=== PATIENT | male | born 1970 | race Two or more races ===

== ENCOUNTER 2018-12-11 07:30 | Inpatient (IN) | payer OTHER ==
[~2018-12-11] VITALS: Ht 172.7 cm; Wt 88.5 kg
[2018-12-23] VITALS (13 sets, daily range): BP systolic 121–148; BP diastolic 68–96
[2018-12-23] MEDS ORDERED: Pantoprazole Inj IVP ONE (06:00)
[2018-12-23] MEDS ORDERED: Vancomycin 1gm/D5W 275ml IVPB ONE ×2 (06:00)
--- NOTE | 2018-12-23 07:51 | Pre-Procedure Note/Attestation ---
Pre-Procedure Note/Attestation Complete Prior to Procedure Planned Procedure: bilateral Procedure Narrative: Redo posterior lumbar decompressive surgery at L4-5 and L5-S1 levels with interbody fixation at the L5-S1 level, pedicle screw fixation at L4-S1, posterolateral arthrodesis, with use of allograft, autograft and iliac crest bone aspirate Attestation I attest that I discussed the nature of the procedure; its benefits; risks and complications; and alternatives (and the risks and benefits of such alternatives ), prior to the procedure, with the patient (or the patient's legal bilingual inside sales representative). I attest that, if there was a reasonable possibility of needing a blood transfusion, the patient (or the patient's legal bilingual inside sales representative) was given the [place] Department of Health Services standardized written summary, pursuant to the Raimundo Kvng Blood Safety Act ([place] Health and Safety Code # 1645, as amended). I attest that I re-evaluated the patient just prior to the surgery and that there has been no change in the patient's H&P, except as documented below: Bryce Pitts MD Dec 23, 2018 07:51
[2018-12-23] MEDS ORDERED: NORMODYNE100 MG ORAL (10:34)
[2018-12-23] MEDS ORDERED: TYLENOL325 M1 PO (10:34)
[2018-12-23] MEDS ORDERED: PERCOCET 10-321 EACH ORAL (10:35)
[2018-12-23] MEDS ORDERED: LR 1000ml 1,000 ML IVLG SCH (11:26)
[2018-12-23] MEDS ORDERED: Hydromorphone 0.5mg/0.5ml inj IVP PRN (11:30)
[2018-12-23] MEDS ORDERED: Acetaminophen (Non formulary) 100 ML IV ONE (11:30)
[2018-12-23] MEDS ORDERED: oxyCODONE HCL/Acetaminophen 5/325mg ORAL PRN (11:30)
[2018-12-23] MEDS ORDERED: Midazolam 2mg/2ml Inj IVP PRN (11:30)
[2018-12-23] MEDS ORDERED: Atropine Sulfate 0.4mg/ml inj IVP PRN (11:30)
[2018-12-23] MEDS ORDERED: fentaNYL 100 mcg/2 mL IV PRN (11:30)
[2018-12-23] MEDS ORDERED: HYDROcodone/Acetamin 5/325 tab ORAL PRN (11:30)
[2018-12-23] MEDS ORDERED: Labetalol 5mg/ml 20ml vial IV PRN (11:30)
[2018-12-23] MEDS ORDERED: Ketorolac 30mg Inj IV PRN ×2 (11:30)
[2018-12-23] MEDS ORDERED: HYDROcodone/Acetamin 7.5/325 tab ORAL PRN (11:30)
[2018-12-23] MEDS ORDERED: Metoclopramide 10mg/2ml Inj IVP PRN (11:30)
[2018-12-23] MEDS ORDERED: LORazepam Inj 2mg/ml 1ml IV PRN (11:30)
[2018-12-23] MEDS ORDERED: Meperidine 50mg/ml Inj(FOR RIGORS ONLY) IVP PRN (11:30)
[2018-12-23] MEDS ORDERED: DiphenhydrAMINE 50mg/ml Inj IVP PRN (11:30)
--- NOTE | 2018-12-23 11:43 | Anethesia Preoperative Eval ---
Anesthesia Pre-op PMH/ROS General Date of Evaluation: Dec 23, 2018 Time of Evaluation: 13:13 Anesthesiologist: Osito ASA Score: ASA 3 Mallampati Score Class I : Soft palate, uvula, fauces, pillars visible Class II: Soft palate, uvula, fauces visible Class III: Soft palate, base of uvula visible Class IV: Only hard plate visible Mallampati Classification: Class II Surgeon: Hong Diagnosis: Neck Pain Surgical Procedure: TLIF L4-5, L5-S1 Social History: current smoker, alcohol use, drug use - Crystal Meth, Marijuana Family History: no anesthesia problems Allergies: Coded Allergies: No Known Allergies (Unverified , 12/23/18) Medications: see eMAR Patient NPO?: Yes NPO Date: Dec 22, 2018 NPO Time: 2199 Past Medical History Cardiovascular: Reports: HTN Musculoskeletal/Integumentary: Reports: other - Scabies PSxH Narrative: Lumbar Fusion Anesthesia Pre-op Phys. Exam Physician Exam Last Vital Signs Date Time Temp Pulse Resp B/P (MAP) Pulse Ox O2 Delivery O2 Flow Rate FiO2 12/23/18 10:31 Room Air 12/23/18 10:15 97.8 78 18 147/96 (113) 100 Constitutional: NAD Neurologic: CN 2-12 intact Cardiovascular: RRR Respiratory: CTA Gastrointestinal: S/NT/ND Airway Exam Mallampati Score: Class II MO: full ROM: limited Teeth: missing, intact Anesthesia Pre-op A/P Risk Assessment & Plan Assessment: ASA 3 Plan: GA. SED, GlideScope Go Status Change Before Surgery: No Pre-Antibiotics Dru Gram Vancomycin IV Given Within 1 Hr of Incision: Yes Time Given: 13:46 Ab Nye MD Dec 23, 2018 11:43
[2018-12-23] MEDS ORDERED: Bupivacaine w/Epi 0.5% 30ml Vial INJ ONE (12:14)
[2018-12-23] MEDS ORDERED: Bacitracin Oint 15gm Tube TOPIC ONE (12:14)
[2018-12-23] MEDS ORDERED: Heparin 1000 units/ml 1ml Vial ONE (12:14)
[2018-12-23] MEDS ORDERED: Thrombin 5000 units TOPIC ONE (12:14)
[2018-12-23] MEDS ORDERED: Bacitracin 50000 Units Vial ONE (12:15)
[2018-12-23] MEDS ORDERED: Gelfoam Size TOPIC ONE (12:15)
[2018-12-23] MEDS ORDERED: Lidocaine 1% Plain 30 ml INJ ONE ×3 (12:36→16:45)
[2018-12-23] MEDS ORDERED: Lidocaine 1% MPF 10mg/ml 5ml ONE (12:38)
[2018-12-23] MEDS ORDERED: Dexamethasone 4mg/ml vial ONE (12:38)
[2018-12-23] MEDS ORDERED: Sodium Chloride 10ml vial INJ ONE (12:38)
[2018-12-23] MEDS ORDERED: fentaNYL 100 mcg/2 mL IV ONE ×3 (12:39→17:57)
[2018-12-23] MEDS ORDERED: Rocuronium Bromide 50mg/5ml Inj IV ONE (12:58)
[2018-12-23] MEDS ORDERED: Pantoprazole Inj ONE (12:58)
[2018-12-23] MEDS ORDERED: Vancomycin 1gm vial IVPB ONE ×2 (12:59→17:37)
[2018-12-23] MEDS ORDERED: Sterile Water Irrig 1000ml IRRIG ONE (13:00)
[2018-12-23] MEDS ORDERED: Propofol 1,000mg/ 100ml btl IV ONE (13:00)
[2018-12-23] MEDS ORDERED: LR 1000ml ONE (13:00)
[2018-12-23] MEDS ORDERED: NS Irrig 1000ml ONE (13:00)
[2018-12-23] MEDS ORDERED: NS Irrig 1000ml IRRIG ONE ×2 (13:34→14:20)
--- NOTE | 2018-12-23 14:22 | Immediate Post-Op Evaluation ---
Immediate Post-Op Evalulation Immediate Post-Op Evalulation Procedure: TLIF L4-5, L5-S1 Date of Evaluation: Dec 23, 2018 Time of Evaluation: 18:48 IV Fluids: 1000 LR Blood Products: 0 Estimated Blood Loss: 100 Urinary Output: 150 Blood Pressure Systolic: 121 Blood Pressure Diastolic: 74 Pulse Rate: 82 Respiratory Rate: 16 O2 Sat by Pulse Oximetry: 100 Temperature (Fahrenheit): 97.6 Pain Score (1-10): 3 Nausea: No Vomiting: No Complications 0 Patient Status: awake, reacts, patent, extubated, none Hydration Status: adequate Dru Gram Vancomycin IV Given Within 1 Hr of Incision: Yes Time Given: 13:46 Ab Nye MD Dec 23, 2018 14:22
[2018-12-23] MEDS ORDERED: Rate Change PCA 1 Each MISC PRN (18:45)
[2018-12-23] MEDS ORDERED: PCA Education Pamphlet MISC ONE (18:45)
[2018-12-23] MEDS ORDERED: Naloxone 0.4mg/ml Inj IVP PRN (18:45)
[2018-12-23] MEDS ORDERED: LORazepam 1mg tab ORAL PRN (18:45)
[2018-12-23] MEDS ORDERED: Milk of Magnesia 30ml Ud ORAL PRN (18:45)
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
--- NOTE | 2018-12-23 19:33 | General Progress Note ---
Progress Note Progress Note Neurosurgery Post-op check S/ Comfortable, No leg pain O/ Last 24 Hour Vital Signs Date Time Temp Pulse Resp B/P (MAP) Pulse Ox O2 Delivery O2 Flow Rate FiO2 12/23/18 19:20 76 13 121/77 100 Nasal Cannula 3 12/23/18 19:06 77 19 134/78 100 Nasal Cannula 3 12/23/18 18:56 76 16 131/79 100 Nasal Cannula 3 12/23/18 18:47 77 11 141/89 100 Simple Mask 6 12/23/18 18:42 77 22 141/74 100 Simple Mask 6 12/23/18 18:37 97.9 83 16 121/74 100 Simple Mask 6 12/23/18 18:34 82 16 100 12/23/18 10:31 Room Air 12/23/18 10:15 97.8 78 18 147/96 (113) 100 Alert and oriented x 4 Moves all extremities to command Normal sensation dressing dry HV minimal output doing well post-op pain management on Dilaudid TUBING TESTER Lumbar brace PT in am Family updated Bryce Pitts MD Dec 23, 2018 19:33
[2018-12-23] MEDS: PCA HYDROmorphone 1mg/ml 30 ML IV PRN (19:37)
--- NOTE | 2018-12-23 20:15 | NUR ---
NURSE NOTES: Received report from Gina from PACU. Patient arrived on the unit at 2009. Patient is awake and alert x4. On Nasal cannula 3L with no c/o SOB. Went over belongings with patient and KNOCK OUT HAND. Surgical site on lower back with hemovac in place. Patient has an IV on the L hand 18g running fluids. TELECOMMUNICATIONS TECHNICIAN checked and verified. Colindres catheter in place and draining yellow urine. Patient's home meds noted in patient bag and sent to pharmacy. Bed locked and in lowest position. Call light in reach. Will monitor closely. VS - BP:132/87 HR:76 O2:97% T:98.1 RR:26 Pain:10/10
[2018-12-23] MEDS: PCA shift volume MISC SCH (20:45)
--- NOTE | 2018-12-23 20:58 | General Progress Note ---
Assessment/Plan Assessment/Plan: s/p complex lumbar spine surgery has a rash negative for MRSA preop Subjective Date patient seen: Dec 23, 2018 Time patient seen: 20:55 Allergies: Coded Allergies: No Known Allergies (Unverified , 12/23/18) Subjective he is hungry he has pain no fever Objective Last 24 Hour Vital Signs Date Time Temp Pulse Resp B/P (MAP) Pulse Ox O2 Delivery O2 Flow Rate FiO2 12/23/18 20:22 15 12/23/18 20:07 13 12/23/18 19:52 15 12/23/18 19:50 98.0 75 19 126/83 100 Nasal Cannula 3 12/23/18 19:37 11 12/23/18 19:35 74 16 136/68 100 Nasal Cannula 3 12/23/18 19:26 97.9 12/23/18 19:20 76 13 121/77 100 Nasal Cannula 3 12/23/18 19:06 77 19 134/78 100 Nasal Cannula 3 12/23/18 18:56 76 16 131/79 100 Nasal Cannula 3 12/23/18 18:47 77 11 141/89 100 Simple Mask 6 12/23/18 18:42 77 22 141/74 100 Simple Mask 6 12/23/18 18:37 97.9 83 16 121/74 100 Simple Mask 6 12/23/18 18:34 82 16 100 12/23/18 10:31 Room Air 12/23/18 10:15 97.8 78 18 147/96 (113) 100 Height (Feet): 5 Height (Inches): 8.00 Weight (Pounds): 195 Neck: other - no jvd Cardiovascular: normal rate, regular rhythm Respiratory/Chest: lungs clear Abdomen: soft Extremities: other - mild edema Neurologic: alert, oriented x 3 MIPS Medication Reconciliation 130 Medication Reconciliation pain control antibiotic prophyalxis PT OT dvt prophyalxis mionnitor Irvin Chiu MD Dec 23, 2018 20:58
[2018-12-23] MEDS: NS w/KCl 20mEq 1000ml 1,000 ML IV SCH (21:53)
--- NOTE | 2018-12-23 22:00 | NUR ---
NURSE NOTES: Instructed patient to use the incentive spirometer 10 times every hour while awake. Patient able to demonstrate technique.
[2018-12-23] MEDS: HYDROmorphone 1mg/ml Carpuject IVP PRN (22:27)
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
[2018-12-24] VITALS (7 sets, daily range): BP systolic 106–149; BP diastolic 62–96
[2018-12-24] MEDS: Vancomycin 1 GM in D5W 275 ML IVPB SCH ×2 (02:14→14:24)
[2018-12-24] MEDS: HYDROmorphone 1mg/ml Carpuject IVP PRN ×4 (06:12→21:02)
[2018-12-24 06:38] LABS: BASOPHILS % (AUTO) 0.2 % (0.0-2.0); HEMOGLOBIN 11.5 G/DL (14.2-18.0); LYMPHOCYTES % (AUTO) 11.7 % (20.0-45.0); MEAN CORPUSCULAR VOLUME 92 FL (80-99); PLATELET COUNT 326 K/UL (150-450); RED BLOOD COUNT 3.72 M/UL (4.70-6.10); RED CELL DISTRIBUTION WIDTH 12.6 % (11.6-14.8); WHITE BLOOD COUNT 13.6 K/UL (4.8-10.8)
[2018-12-24] MEDS: PCA shift volume MISC SCH ×2 (07:00→19:00)
[2018-12-24] MEDS: NS w/KCl 20mEq 1000ml 1,000 ML IV SCH (07:00)
[2018-12-24 07:01] LABS: ANION GAP 6 mmol/L (5-15); BLOOD UREA NITROGEN 9 mg/dL (7-18); CALCIUM 7.5 MG/DL (8.5-10.1); CARBON DIOXIDE 26 MMOL/L (21-32); CHLORIDE 106 MMOL/L (98-107); CREATININE 0.7 MG/DL (0.55-1.30); POTASSIUM 4.2 MMOL/L (3.5-5.1); SODIUM 138 MMOL/L (136-145)
--- NOTE | 2018-12-24 07:38 | NUR ---
HAND-OFF: Report given to NELSON Maynard.
--- NOTE | 2018-12-24 08:00 | NUR ---
NURSE NOTES: Received report from Ana M DAMON. Patient is awake and oriented, no acute distress noted, on NC, etCO2 monitoring in place. FURNACE CONVERTER settings checked and verified against order. SCD's in place. Hemovac compressed, posterior surgical dressing with small stain noted. Patient having breakfast and tolerating well. Updated on plan of care for the day. Side rails upx2, bed low and locked, call light in reach. Will continue to monitor.
--- NOTE | 2018-12-24 08:31 | 48 Hour Post Anesthesia Eval ---
Post Anesthesia Evaluation Procedure: TLIF L4-5, L5-S1 Date of Evaluation: Dec 24, 2018 Time of Evaluation: 08:30 Blood Pressure Systolic: 127 0: 68 Pulse Rate: 68 Respiratory Rate: 20 Temperature (Fahrenheit): 97.6 O2 Sat by Pulse Oximetry: 98 Airway: patent Nausea: No Vomiting: No Pain Intensity: 3 Hydration Status: adequate Cardiopulmonary Status: stable Mental Status/LOC: patient returned to baseline Follow-up Care/Observations: n/a Post-Anesthesia Complications: none Follow-up care needed: N/A Joshua Laird MD Dec 24, 2018 08:31
[2018-12-24] MEDS: Docusate Sod/Senna tab ORAL SCH ×2 (09:06→18:01)
[2018-12-24] MEDS: Docusate 100mg cap ORAL SCH ×2 (09:07→18:01)
--- NOTE | 2018-12-24 10:38 | Diagnostic Imaging Report ---
INDICATION: Pain, intraoperative TECHNIQUE: Intraoperative imaging Fluoroscopy time: 41.4 seconds Total dose: 0.06102 mGym2 Total number of images: 6 COMPARISON: None FINDINGS: 6 intraoperative images demonstrate markers projected posteriorly to what is presumably the L4-5 disc and proximal sacrum. Subsequent images document placement of posterior fusion hardware bridging L4, L5, and S1, as well as placement of a disc spacer at L5-S1 IMPRESSION: Intraoperative imaging, as described
--- NOTE | 2018-12-24 11:25 | NUR ---
PT NOTE Received MD order for PT evaluation. Patient also has order for lumbar brace, brace not available yet. Left message for Dr. Pitts to clarify if patient can be OOB without brace, waiting for return call. Aleyda DAMON aware, will follow.
--- NOTE | 2018-12-24 13:35 | NUR ---
PT EVALUATION NOTE Patient seen for initial evaluation, see complete evaluation for details. Patient lives in a second floor apartment without elevator access. Patient presents with impaired functional mobility s/p lumbar surgery. Patient requires min assist to complete bed mobility tasks and CGA for transfers with FWW. Patient able to ambulate 30 ft with CGA and FWW. Patient will benefit from skilled inpatient PT intervention to address strength, balance and safety including stair training to increase independence with functional mobility. Recommend discharge to ARU/SNF for further rehab once medically cleared by MD. Recommend FWW and elevated toilet seat for home. Addendum: 12/24/18 at 1449 by LISA NIETO PT Amended: Links added.
--- NOTE | 2018-12-24 15:26 | NUR ---
NURSE NOTES: Colindres catheter removed per MD order. Patient tolerated well. Patient provided with urinal and educated to inform RN when he voids. Will continue to monitor.
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
--- NOTE | 2018-12-24 17:42 | NUR ---
NURSE NOTES: Patient voided 275mL of clear, yellow urine without difficulty.
[2018-12-24] MEDS: PCA HYDROmorphone 1mg/ml 30 ML IV PRN (18:04)
[2018-12-24] MEDS ORDERED: PCA HYDROmorphone 1mg/ml 30 ML IV PRN (18:45)
--- NOTE | 2018-12-24 18:45 | NUR ---
NURSE NOTES: Received call from Dr. Pitts. MD gave orders to change WOOD REPATCHER bolus interval to 10min and d/c WOOD REPATCHER tomorrow at 1000 and start patient on PO Dilaudid. also gave orders for CT lumbar spine w/o contrast. Orders read back and entered. Changed WOOD REPATCHER settings to 0.2mg/10min lockout/6mg per 4hr max with second nurse witness Anita DAMON.
--- NOTE | 2018-12-24 19:45 | NUR ---
HAND-OFF: Report given to Odalis DAMON.
[2018-12-25] VITALS (8 sets, daily range): BP systolic 131–171; BP diastolic 83–111
--- NOTE | 2018-12-25 00:05 | NUR ---
NURSES NOTE: Met patient in bed, lying supine, A/O X4, very talkative and able to communicate needs. Patient shows no outward s/s of distress, breathing is unlabored and even, 2000 VS taken and low grade fever detected- 100.6. Tylenol 650 mg given. Temp decreased to 99.7. RETORT OPERATOR pump in use by patient. Patient aware of RETORT OPERATOR usage and delivers self doses accordingly. Dilaudid 1mg given at 2100 and 0300 for break through pain. RR normal. Surgical site, clean and intact. Hemovac draining appropriately. Patient will continue to be monitored.
[2018-12-25] MEDS: HYDROmorphone 1mg/ml Carpuject IVP PRN ×3 (02:44→12:45)
--- NOTE | 2018-12-25 05:40 | NUR ---
NURSES NOTE At 0423 SHOEMAKER APPRENTICE pump increased from 0.20 to 0.30, according to titration parameters. Patient reporting improved pain scale numbers- increase effective. Before increase implemented, pharmacy called and spoke to Griselda (pharmacist). Griselda stated no need to change order if increase stays within specified numbers of existing order. Charge nurseRay aware and implemented change with RN.
[2018-12-25] MEDS: PCA shift volume MISC SCH (07:00)
--- NOTE | 2018-12-25 07:58 | NUR ---
NURSE NOTES: Received report from Odalis DAMON. Patient is awake and oriented, no acute distress noted. Posterior lumbar dressing clean, dry, hemovac compressed per order. SCD's in place. Per report, ADMINISTRATIVE SUPERVISOR settings changed per ADMINISTRATIVE SUPERVISOR order protocol at 0423 due to patient's increased pain. sr technical sales consultant nurse and charge nurse changed ADMINISTRATIVE SUPERVISOR settings to 0.3mg blous, 10 min lock out, 6mg per 4 hour max. eMar still reflects order for 0.2mg bolus, 10 min lockout, 6mg per [address] Pitts unaware that patient's ADMINISTRATIVE SUPERVISOR settings were changed. Called pharmacist Harman and reported ADMINISTRATIVE SUPERVISOR rate change to pharmacist. Per Harman, ADMINISTRATIVE SUPERVISOR settings must reflect current order. Changed ADMINISTRATIVE SUPERVISOR settings to ordered dose of 0.2mg bolus, 10 min lockout, 6mg per 4 hours max with second nurse witness wire charger Elfie. Patient updated on plan of care for the day. Side rails upx2, bed low and locked, call light in reach. Will continue to monitor.
--- NOTE | 2018-12-25 08:32 | NUR ---
NURSES NOTES: Report given to Zoe Williamson RN.
[2018-12-25] MEDS: Docusate 100mg cap ORAL SCH ×2 (08:42→17:56)
[2018-12-25] MEDS: Docusate Sod/Senna tab ORAL SCH ×2 (08:42→17:56)
--- NOTE | 2018-12-25 08:53 | NUR ---
NURSE NOTES: Patient blood pressure 170/111/ Patient reported pain in lower back rated 8/10. Administered patient's scheduled blood pressure medication and breakthrough pain medication per order. Patient now being taken down for ordered CT. Will reassess.
--- NOTE | 2018-12-25 09:19 | NUR ---
NURSE NOTES: Patient returned from CT.
--- NOTE | 2018-12-25 09:32 | NUR ---
CT LUMBAR W/O COMPLETED.
[2018-12-25] MEDS ORDERED: HYDROmorphone 4mg tab ORAL PRN (10:00)
--- NOTE | 2018-12-25 10:23 | NUR ---
NURSE NOTES: FOUNDRY WORKER APPRENTICE discontinued per MD order. 14.3mL of dilaudid wasted in pharmacy with michael Hammer.
--- NOTE | 2018-12-25 12:05 | Diagnostic Imaging Report ---
Indication: Back pain Technique: CT of lumbar spine was performed utilizing automated exposure control without intravenous contrast material. Axial, sagittal and coronal images were generated. CT dose: Total DLP 779.5 mGycm; CTDI vol 20.8 mGy Comparison: Fluoroscopic images 12/23/2018 Findings: Limited exam due to streak artifact from spinal hardware. Within these limitations: There are 5 nonrib-bearing lumbar-type vertebral bodies, assuming 12 paired ribs. Lumbar lordosis is maintained. There is no evidence of spondylolisthesis. There is postoperative changes related to surgical fixation spanning from L4 to S1 by means of paired posterior rods affixed at each level with paired pedicular screws. No lucency noted about the screws. The left-sided screw at S1 there does extending anteriorly past the superior cortex of S1 by approximately 4-5 mm (sagittal image #26). There is an artificial disc spacer at L5-S1. There are bony changes suggesting hemilaminectomy at L4 on the right and bilateral hemilaminectomies at L5. A angle indwelling surgical drain is noted with the tip just the left of midline at the level of L4-L5. Punctate foci of gas in the soft tissues noted, consistent with recent surgical intervention. No well-defined/drainable fluid collection is identified to suggest abscess. No significant hematoma is identified. Partially imaged lung bases unremarkable. Imaged portions of the visceral abdomen and pelvis unremarkable. IMPRESSION: Postoperative changes related to hemilaminectomy at L4 on the right and bilaterally at L5 as well as instrumented posterior fusion spanning from L4 to S1 by means of paired posterior rods and pedicular screws at each level. Left-sided screw at S1 extends anteriorly past the superior cortex of S1 by approximately 4-5 mm (sagittal image #26). Soft tissue stranding and few punctate foci of subcutaneous gas most likely related to recent intervention. No evident organized/drainable fluid collection. Indwelling drainage catheter noted. The CT scanner at [facility] is accredited by the [employer] and the scans are performed using protocols designed to limit radiation exposure to as low as reasonably achievable to attain images of sufficient resolution adequate for diagnostic evaluation.
--- NOTE | 2018-12-25 14:35 | General Progress Note ---
Progress Note Progress Note S/ Ambulated with PT. Chronic pain. Pt had popst-op CT. Tolerating po's. Patient reorts improved sensation in his the legs O/ vitals Last 24 Hour Vital Signs Date Time Temp Pulse Resp B/P (MAP) Pulse Ox O2 Delivery O2 Flow Rate FiO2 12/25/18 12:00 99.2 86 18 154/94 (114) 96 12/25/18 10:03 91 148/95 (112) 12/25/18 09:00 Room Air 12/25/18 08:42 90 170/111 12/25/18 08:00 98.8 90 20 170/111 (130) 95 12/25/18 08:00 90 20 95 12/25/18 04:23 86 16 99 12/25/18 04:00 99.2 86 16 158/97 (117) 98 12/25/18 00:00 99.7 88 16 131/83 (99) 99 12/25/18 00:00 88 17 99 12/24/18 22:15 99.7 12/24/18 21:00 100.6 90 17 146/95 (112) 98 12/24/18 21:00 Nasal Cannula 2.0 12/24/18 20:58 90 149/96 12/24/18 20:00 90 18 98 12/24/18 16:00 98.4 73 18 136/83 (100) 99 12/24/18 16:00 73 18 99 O exam Incision is completely dry. Moves all extremities well 5/5 strength in the upper and lowers. labs: Labs Test 12/23/18 23:15 12/24/18 05:15 Magnesium Level 2.1 MG/DL (1.8-2.4) White Blood Count 13.6 K/UL (4.8-10.8) Red Blood Count 3.72 M/UL (4.70-6.10) Hemoglobin 11.5 G/DL (14.2-18.0) Hematocrit 34.0 % (42.0-52.0) Mean Corpuscular Volume 92 FL (80-99) Mean Corpuscular Hemoglobin 30.9 PG (27.0-31.0) Mean Corpuscular Hemoglobin Concent 33.7 G/DL (32.0-36.0) Red Cell Distribution Width 12.6 % (11.6-14.8) Platelet Count 326 K/UL (150-450) Mean Platelet Volume 5.6 FL (6.5-10.1) Neutrophils (%) (Auto) 81.0 % (45.0-75.0) Lymphocytes (%) (Auto) 11.7 % (20.0-45.0) Monocytes (%) (Auto) 7.0 % (1.0-10.0) Eosinophils (%) (Auto) 0.0 % (0.0-3.0) Basophils (%) (Auto) 0.2 % (0.0-2.0) Sodium Level 138 MMOL/L (136-145) Potassium Level 4.2 MMOL/L (3.5-5.1) Chloride Level 106 MMOL/L (98-107) Carbon Dioxide Level 26 MMOL/L (21-32) Anion Gap 6 mmol/L (5-15) Blood Urea Nitrogen 9 mg/dL (7-18) Creatinine 0.7 MG/DL (0.55-1.30) Estimat Glomerular Filtration Rate > 60 mL/min (>60) Glucose Level 128 MG/DL (74-106) Calcium Level 7.5 MG/DL (8.5-10.1) Imaging studies: I reviewed the post operative CT. Lumbar fusion L4 to S1 with interbody cage at L5-S1 is in good position. No post-op hematoma. pain control PT lumbar brace will need post-op rehab/SNIF Bryce Pitts MD Dec 25, 2018 14:35
[2018-12-25] MEDS: oxyCODONE 15mg IR tab ORAL PRN ×2 (15:17→22:26)
--- NOTE | 2018-12-25 15:45 | NUR ---
/*-* DISCHARGE PLANNING *-* PATIENT HAS BEEN REFERRED TO: [facility] F:
--- NOTE | 2018-12-25 15:47 | NUR ---
NURSE NOTES: Per case management, patient has a bed at [facility]. Called Dr. Pitts and left message for discharge order. Awaiting call back from .
--- NOTE | 2018-12-25 17:06 | NUR ---
GUNNER'S MATE M NOTES SPOKE WITH BENJIE, PT TO DISCHARGE IN AM TO [facility], AMBULANCE TO KEY ACCOUNT DIRECTOR PT @ 0900. Addendum: 12/25/18 at 1719 by ILYA HERNÁNDEZ RN RN SPOKE WITH NIKOLAI FROM [facility] PT ACCEPTED TO ROOM [address] [facility] [phone] [id number] [place], [place]
--- NOTE | 2018-12-25 17:49 | NUR ---
NURSE NOTES: No call back from Dr. Pitts. Per YOLIE Monroe, plan is to discharge patient tomorrow.
--- NOTE | 2018-12-25 19:17 | NUR ---
HAND-OFF: Report given to Odalis DAMON.
[2018-12-25] MEDS: oxyCONTIN 10mg tab ORAL SCH (20:13)
--- NOTE | 2018-12-25 22:35 | General Progress Note ---
Assessment/Plan Assessment/Plan: s/p complex lumbar spine surgery has a rash negative for MRSA preop continuesi bill sofia Subjective Date patient seen: Dec 25, 2018 Time patient seen: 22:33 Allergies: Coded Allergies: No Known Allergies (Unverified , 12/23/18) Subjective has a lot of pain per nursigtn staff keeps wanting painmedicaiton no fevernochills Objective Last 24 Hour Vital Signs Date Time Temp Pulse Resp B/P (MAP) Pulse Ox O2 Delivery O2 Flow Rate FiO2 12/25/18 20:12 83 171/105 12/25/18 16:00 99.4 92 20 164/97 (119) 98 12/25/18 12:00 99.2 86 18 154/94 (114) 96 12/25/18 10:03 91 148/95 (112) 12/25/18 09:00 Room Air 12/25/18 08:42 90 170/111 12/25/18 08:00 98.8 90 20 170/111 (130) 95 12/25/18 08:00 90 20 95 12/25/18 04:23 86 16 99 12/25/18 04:00 99.2 86 16 158/97 (117) 98 12/25/18 00:00 99.7 88 16 131/83 (99) 99 12/25/18 00:00 88 17 99 Intake and Output 12/24/18 12/25/18 19:00 07:00 Intake Total 1975 ml Output Total 1165 ml Balance 810 ml Intake Oral 1200 ml IV Total 775 ml Output Urine Total 1085 ml Drainage Total 80 ml Height (Feet): 5 Height (Inches): 8.00 Weight (Pounds): 195 General Appearance: WD/WN Cardiovascular: normal rate, regular rhythm, no JVD Respiratory/Chest: lungs clear Abdomen: soft MIPS Medication Reconciliation 130 Medication Reconciliation perioperative antibiotic prophyalxis given physical therpay occupatioanl therapy dvt prophyalxis with scd when ok can start him on heparin sub q hypertension add norvasc 5 daily and cloniidine 0.1 tid prn elevated bp over 160 add cymbalta 30 daily Irvin Blandon MD Dec 25, 2018 22:35
[2018-12-25] MEDS ORDERED: LORazepam Inj 2mg/ml 1ml IV ONE (22:45)
[2018-12-26] VITALS: BP 152/95
--- NOTE | 2018-12-26 02:27 | NUR ---
NURSES NOTE: Received pt in bed, A/Ox4, responds to questions appropriately, able to let needs be known. 1999 VS taken and WNL besides BP AT 171/105. Patient reporting 9/10 pain at surgical site- medial back. Lebetalol 100mg given at 2100. Ineffective. New order for one time dose of Norvasc 5mg given, effective. Ativan 1mg IV push, given as well for pain and relaxation. Both effective - Bp 152/95. All due pain meds given. Patient reported improved pain 4/10. Patient now sleeping, appears comfortable. Dr. Pitts called and approved D/C for 12/26 in the AM. Order placed in the system. Patient will continue to be monitored.
[2018-12-26] MEDS: oxyCODONE 15mg IR tab ORAL PRN (03:55)
[2018-12-26 04:00] VITALS: BP 165/105
[2018-12-26 05:38] LABS: BASOPHILS % (AUTO) 0.6 % (0.0-2.0); EOSINOPHILS % (AUTO) 0.4 % (0.0-3.0); HEMATOCRIT 34.7 % (42.0-52.0); HEMOGLOBIN 11.9 G/DL (14.2-18.0); LYMPHOCYTES % (AUTO) 12.9 % (20.0-45.0); MEAN CORPUSCULAR VOLUME 89 FL (80-99); MONOCYTES % (AUTO) 11.3 % (1.0-10.0); NEUTROPHILS % (AUTO) 74.8 % (45.0-75.0); PLATELET COUNT 282 K/UL (150-450); RED BLOOD COUNT 3.89 M/UL (4.70-6.10)
[2018-12-26 05:51] LABS: ALANINE AMINOTRANSFERASE 65 U/L (12-78); ALBUMIN 2.8 G/DL (3.4-5.0); ALBUMIN/GLOBULIN RATIO 0.8 (1.0-2.7); ALKALINE PHOSPHATASE 100 U/L (46-116); ANION GAP 6 mmol/L (5-15); ASPARTATE AMINO TRANSFERASE 30 U/L (15-37); BILIRUBIN,TOTAL 0.7 MG/DL (0.2-1.0); BLOOD UREA NITROGEN 4 mg/dL (7-18); CALCIUM 8.6 MG/DL (8.5-10.1); CARBON DIOXIDE 32 MMOL/L (21-32); CHLORIDE 100 MMOL/L (98-107); CREATININE 0.6 MG/DL (0.55-1.30); POTASSIUM 3.1 MMOL/L (3.5-5.1); SODIUM 138 MMOL/L (136-145)
[2018-12-26 07:58] VITALS: BP 149/98
--- NOTE | 2018-12-26 08:00 | NUR ---
NURSE NOTES: RECEIVED PATIENT A/A/OX4, TALKATIVE. PROVIDED ICE PACK AND WALKER TO AMBULATE. NO ACUTE DISTRESS NOTED. SURGICAL DRSG DRY AND INTACT. SCD'S INPLACED. APPETITE IS GOOD. NO N/V NOTED. ABLE TO MOVE BM. IV HEPLOCK PATENT AND INTACT. WILL CONT TO MONITOR.
[2018-12-26 08:06] VITALS: BP 149/98
[2018-12-26] MEDS: Docusate 100mg cap ORAL SCH (08:06)
[2018-12-26] MEDS: Docusate Sod/Senna tab ORAL SCH (08:07)
[2018-12-26] MEDS: oxyCONTIN 10mg tab ORAL SCH (08:07)
--- NOTE | 2018-12-26 08:10 | NUR ---
NURSES NOTE: Report given to NELSON Velazquez. Called DR Pitts and left message in regards to patient refusing discharge today, low potassium level, and uncontrolled blood pressure through out NOC shift. Asked to pls advise.
[2018-12-26] MEDS ORDERED: DULoxetine 30mg cap ORAL SCH (09:00)
--- NOTE | 2018-12-26 10:04 | NUR ---
NURSE NOTES: DISCHARGE WITH INSTRUCTIONS. OWN MEDS GIVEN BACK TO PATIENT AND REVIEWED. REPORT GIVEN TO [facility] WITH CONFIRMED ROOM NUMBER. CALLED DAUGHTER, DONTE AND LEFT VOICEMESSAGE TO INFORM SUCH DISCHARGE. VSS AND RECORDED. NO ACUTE DISTRESS NOTED. APPETITE WAS GOOD AND MOVED BM TODAY. PERSONAL BELONGINGS NOTED. TRANSPORTATION PROVIDED. Addendum: 12/26/18 at 1024 by MEG DE LA TORRE LVN REMOVED IV HEPLOCK .
[2018-12-26] MEDS ORDERED: Miralax 17gm pkt ORAL SCH (21:00)
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
== END 2018-12-26 10:15 | disposition short-term general hospital (02) | DRG 454 ==
LOC: SDSOVERFLO 12-23 09:40 → 3E 12-23 20:30
PROC: 01NB0ZZ Release Lumbar Nerve, Open Approach (ICD-10-PCS; principal; 2018-12-23 11:30)
PROC: 0SG30AJ Fusion of Lumbosacral Joint with Interbody Fusion Device, Posterior Approach, Anterior Column, Open Approach (ICD-10-PCS; principal; 2018-12-23 11:30)
PROC: 0RB30ZZ Excision of Cervical Vertebral Disc, Open Approach (ICD-10-PCS; principal; 2018-12-23 11:30)
PROC: 0SB20ZZ Excision of Lumbar Vertebral Disc, Open Approach (ICD-10-PCS; principal; 2018-12-23 11:30)
PROC: 07DR0ZZ Extraction of Iliac Bone Marrow, Open Approach (ICD-10-PCS; principal; 2018-12-23 11:30)
PROC: 0SG1071 Fusion of 2 or more Lumbar Vertebral Joints with Autologous Tissue Substitute, Posterior Approach, Posterior Column, Open Approach (ICD-10-PCS; principal; 2018-12-23 11:30)
PROC: 01NR0ZZ Release Sacral Nerve, Open Approach (ICD-10-PCS; principal; 2018-12-23 11:30)
DX: M51.16 Intervertebral disc disorders with radiculopathy, lumbar region (principal); F11.20 Opioid dependence, uncomplicated; M48.57XA Collapsed vertebra, not elsewhere classified, lumbosacral region, initial encounter for fracture; V89.2XXS Person injured in unspecified motor-vehicle accident, traffic, sequela; Z98.890 Other specified postprocedural states; G96.12 Meningeal adhesions (cerebral) (spinal)
CPT/HCPCS: 36415; 72020; 72131; 76000; 80048; 80053; 83735; 85025; 86850; 86900; 86901; 87081; C9399; J2405; J7030; J8499